=== PATIENT | female | born 1955 | race African-American/Black ===

== ENCOUNTER 2016-10-18 10:37 | Emergency (ER) | payer OTHER ==
[~2016-10-18] VITALS: Ht 157.5 cm; Wt 65.8 kg
[~2016-10-18 10:37] MED LIST: ALPR0.5T2 PO; GABA600T1 PO; HYDR-4452 PO; IBUP-974 PO; LORA-476 PO; VENL75TA17 PO
--- NOTE | 2016-10-18 10:37 | NUR ---
PATIENT BIB BLS TO ER BED 6.
--- NOTE | 2016-10-18 10:40 | NUR ---
60/F BIBA FROM HOME STATES FELL OFF BED ONTO TILE WITH PAIN TO R HIP RADIATING TO BACK. HX OSTEOPOROSIS AND SIATICA. PER EMS PT WAITING FOR THEM IN WHEELCHAIR. W/C BROUGHT WITH PT. DENIES LOC. PT AAOX4. PT SISTER ON THE WAY. DENIES N/V/D; SKIN IS PINK/WARM/DRY; AAOX4 WITH EVEN AND STEADY GAIT; LUNGS CLEAR BL; HR EVEN AND REGULAR; PT DENIES ANY FEVER, CP, SOB, OR COUGH AT THIS TIME; PATIENT STATES RT HIP PAIN OF 8/10 AT THIS TIME; VSS; PATIENT POSITIONED FOR COMFORT; HOB ELEVATED; BEDRAILS UP X2; BED DOWN. ER MD MADE AWARE OF PT STATUS.
[2016-10-18 10:41] VITALS: BP 133/67
[2016-10-18] MEDS ORDERED: fentaNYL 0.05 MG/ML VIAL IVP ONE ×2 (10:45→11:30)
[2016-10-18] MEDS ORDERED: NACL 0.9% 1,000 ML IV ONE (10:45)
--- NOTE | 2016-10-18 10:47 | NUR ---
PATIENT BEING EVALUATED BY DR. RUFF.
--- NOTE | 2016-10-18 11:06 | NUR ---
PT WENT TO CT SCAN ACCOMPANIED BY TECH.
[2016-10-18 11:13] LABS: BASOPHILS # (AUTO) 0.1 K/uL (0.00-0.22); BASOPHILS % (AUTO) 2.2 % (0.0-2.0); EOSINOPHILS # (AUTO) 0.2 K/uL (0-0.4); EOSINOPHILS % (AUTO) 4.3 % (0.0-4.0); HEMATOCRIT 38.2 % (36-48); HEMOGLOBIN 12.5 g/dL (12.0-16.0); LYMPHOCYTES # (AUTO) 1.6 K/uL (2.5-16.5); LYMPHOCYTES % (AUTO) 30.8 % (20.5-51.1); MEAN CORPUSCULAR HEMOGLOBIN 29 pg (27-31); MEAN CORPUSCULAR HGB CONC 33 g/dL (33-37); MEAN CORPUSCULAR VOLUME 90 fL (80-94); MONOCYTES # (AUTO) 0.2 K/uL (0.8-1.0); MONOCYTES % (AUTO) 4.6 % (1.7-9.3); NEUTROPHILS # (AUTO) 3.1 K/uL (1.8-7.7); NEUTROPHILS % (AUTO) 58.1 % (42.2-75.2); PLATELET COUNT (AUTO) 367 K/uL (140-450); RED BLOOD CELL COUNT(AUTO) 4.26 MIL/uL (4.20-5.40); RED CELL DISTRIBUTION WIDTH 14.7 % (11.6-13.7); WHITE BLOOD COUNT (AUTO) 5.2 K/uL (4.8-10.8)
[2016-10-18 11:30] LABS: ALBUMIN 3.1 g/dL (3.4-5.0); ANION GAP 14.1 (8-16); CALCIUM 8.9 mg/dL (8.5-10.1); CARBON DIOXIDE 22.9 mmol/L (21-32); CREATININE 1.4 mg/dL (0.6-1.3); TOTAL BILIRUBIN 0.2 mg/dL (0.0-1.0); TOTAL PROTEIN, SERUM 7.1 g/dL (6.4-8.2)
[2016-10-18 11:41] LABS: PARTIAL THROMBOPLASTIN TIME 26.2 secs (22-35.6); PROTHROMBIN TIME 10.2 secs (10.8-13.4)
[2016-10-18] MEDS ORDERED: POTASSIUM CHLORIDE 10 MEQ TABER PO ONE (11:50)
[2016-10-18 13:40] VITALS: BP 117/84
== END 2016-10-18 13:40 | disposition home or self-care (01) ==
LOC: MED 10:37
DX: S70.01XA Contusion of right hip, initial encounter (principal); M54.5 Low back pain; G89.29 Other chronic pain; N28.9 Disorder of kidney and ureter, unspecified; E87.6 Hypokalemia; R03.0 Elevated blood-pressure reading, without diagnosis of hypertension; Z79.899 Other long term (current) drug therapy; Z88.6 Allergy status to analgesic agent; Z88.3 Allergy status to other anti-infective agents
CPT/HCPCS: 36415; 72192; 80053; 85025; 85610; 85730; 93005; 96361; 96374; 96376; 99285; J3010; J7030; 96375

== ENCOUNTER 2017-05-01 11:51 | Emergency (ER) | payer OTHER ==
[~2017-05-01] VITALS: Ht 160 cm; Wt 63.5 kg
[~2017-05-01 11:51] MED LIST changes: +ACET-787 PO; -HYDR-4452 PO
[2017-05-01 12:07] VITALS: BP 144/67
--- NOTE | 2017-05-01 12:14 | NUR ---
PATIENT TO OF#1 AT THIS TIME.
--- NOTE | 2017-05-01 12:26 | NUR ---
PT CRYING AT THIS TIME, CLAIME I NEED ATIVAN
--- NOTE | 2017-05-01 12:30 | NUR ---
PATIENT MOVED TO BED 12.
--- NOTE | 2017-05-01 12:30 | NUR ---
PATIENT PRESENTS TO ED WITH P FALL YESTERDAY; C/O RIGHT LATERAL KNEE PAIN; PT ALSO C/O SEVERE ANXIETY AND STATES SHE RAN OUT OF ATIVAN YESTERDAY HX: ANXIETY, DEGENERATIVE BONE DISEASE . DENIES N/V/D; SKIN IS PINK/WARM/DRY; AAOX4 WITH EVEN AND STEADY GAIT; LUNGS CLEAR BL; HR EVEN AND REGULAR; PT DENIES ANY FEVER, CP, SOB, OR COUGH AT THIS TIME; PATIENT STATES PAIN OF 8/10 AT THIS TIME; PATIENT POSITIONED FOR COMFORT; HOB ELEVATED; BEDRAILS UP X2; BED DOWN. ER MD MADE AWARE OF PT STATUS. BLANKET TO THE PT AND ENCOURAGE TO CALM DOWN.
--- NOTE | 2017-05-01 12:35 | NUR ---
received report from christa fournier. pt moved to bed 12. pt with no complaints. pt is calm. rr are even and unlabored. vss. will continue to monitor.
--- NOTE | 2017-05-01 13:48 | NUR ---
DR. ALVAREZ AT BEDSIDE
[2017-05-01] MEDS ORDERED: LORazepam 2 MG/ML VIAL IM/IVP ONE (13:55)
[2017-05-01] MEDS ORDERED: ACETAMINOPHEN 325 MG TAB PO ONE (13:55)
[2017-05-01] MEDS ORDERED: ACETAMINOPHEN 325 MG TAB ONE (14:08)
[2017-05-01] MEDS ORDERED: LORazepam 2 MG/ML VIAL ONE ×2 (14:11→15:35)
--- NOTE | 2017-05-01 15:16 | NUR ---
informed er md tomlinson that patient is "anxious" and "wants more ativan.
[2017-05-01] MEDS ORDERED: LORazepam 2 MG/ML VIAL IM ONE (15:25)
[2017-05-01 15:48] VITALS: BP 121/80
--- NOTE | 2017-05-01 16:00 | NUR ---
patient stated "can you ask the doctor for more tramadol and muscle relaxers medication to go home"; er md tomlinson aware and notified.
--- NOTE | 2017-05-01 16:08 | NUR ---
pt left ed without discharge paperwork or obtaining vitals signs. pt stated "if I dont get what meds I want...why wait". Pt left ambulatory with steady gait with walked assistance. Pt sts she is calling a taxi for transportation home.
== END 2017-05-01 16:08 | disposition home or self-care (01) ==
LOC: MED 11:51
DX: S80.11XA Contusion of right lower leg, initial encounter (principal); F41.9 Anxiety disorder, unspecified; W18.39XA Other fall on same level, initial encounter; Y93.89 Activity, other specified; Y92.89 Other specified places as the place of occurrence of the external cause; Y99.8 Other external cause status
CPT/HCPCS: 73590; 96372; 99284; J2060; Q0092

== ENCOUNTER 2017-07-24 15:42 | Emergency (ER) | payer OTHER ==
[~2017-07-24] VITALS: Ht 157.5 cm; Wt 59.0 kg
[~2017-07-24 15:42] MED LIST changes: -ALPR0.5T2 PO
[2017-07-24 15:45] VITALS: BP 140/94
--- NOTE | 2017-07-24 15:46 | NUR ---
PT BIBA BLS FOR BACK PAIN TO BED 10
--- NOTE | 2017-07-24 15:50 | NUR ---
61Y/F BIB [facility] WITH LOW BACK PAIN THIS MORNING; S/P FALL ON A LADDER 2 DAYS AGO AND LANDED ON HER BACK; DENIES ALOC OR ANY OTHER INJURIES. ER MD MADE AWARE OF PT STATUS.
[2017-07-24] MEDS ORDERED: ONDANSETRON 4 MG ODT PO ONE (16:55)
[2017-07-24] MEDS ORDERED: DEXAMETHASONE 10 MG/ML VIAL IM ONE (16:55)
[2017-07-24] MEDS ORDERED: CYCLOBENZAPRINE 10 MG TAB PO ONE (16:55)
[2017-07-24] MEDS ORDERED: MORPHINE SULFATE 5 MG/ML VIAL IM ONE (16:55)
[2017-07-24] MEDS ORDERED: oxyCODONE/APAP 5/325 MG 1 TAB TAB PO ONE (18:10)
[2017-07-24 18:54] VITALS: BP 138/93
--- NOTE | 2017-07-24 18:54 | NUR ---
Patient discharged with v/s stable. Written and verbal after care instructions given and explained. Patient alert, oriented and verbalized understanding of instructions. Ambulatory with steady gait. All questions addressed prior to discharge. ID band removed. Patient advised to follow up with PMD. Rx of PERCOCET, FLEXIRIL given. Patient educated on indication of medication including possible reaction and side effects. Opportunity to ask questions provided and answered.
== END 2017-07-24 18:54 | disposition home or self-care (01) ==
LOC: MED 15:42
DX: S39.012A Strain of muscle, fascia and tendon of lower back, initial encounter (principal); Z88.6 Allergy status to analgesic agent; W11.XXXA Fall on and from ladder, initial encounter; Y93.89 Activity, other specified; Y92.89 Other specified places as the place of occurrence of the external cause; Y99.8 Other external cause status
CPT/HCPCS: 74018; 96372; 99284; J1100; J2270; Q0092; S0119

== ENCOUNTER 2017-08-04 10:38 | Emergency (ER) | payer OTHER ==
[~2017-08-04] VITALS: Ht 157.5 cm; Wt 63.5 kg
--- NOTE | 2017-08-04 10:39 | NUR ---
PT [place] BLS FOR ANXIETY TO BED 3
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
[2017-08-04 10:41] VITALS: BP 126/65
--- NOTE | 2017-08-04 10:48 | NUR ---
Patient being evaluated by DR Estevez bedside.
[2017-08-04] MEDS ORDERED: VENLAFAXINE 37.5 MG TAB PO ONE (10:50)
[2017-08-04] MEDS ORDERED: LORazepam 1 MG TAB PO ONE (10:50)
[2017-08-04] MEDS ORDERED: VENLAFAXINE 37.5 MG TAB PO SCH (10:55)
--- NOTE | 2017-08-04 10:56 | NUR ---
Jacque noel in ED - 08/04/17 at 1058 by [facility] PT 'S UNABLE TO PROVIDE URINE AT THIS TIME. PROVIDED WATER & JUICES.
[2017-08-04 11:26] VITALS: BP 131/75
--- NOTE | 2017-08-04 11:27 | NUR ---
Patient discharged with v/s stable. Written and verbal after care instructions given and explained. Patient alert, oriented and verbalized understanding of instructions. Ambulatory with WALKER. All questions addressed prior to discharge. ID band removed. Patient advised to follow up with PMD. Rx of ATIVAN & VENLAFAXINE given. Patient educated on indication of medication including possible reaction and side effects. Opportunity to ask questions provided and answered.
== END 2017-08-04 11:27 | disposition home or self-care (01) ==
LOC: MED 10:38
DX: F41.9 Anxiety disorder, unspecified (principal); F32.9 Major depressive disorder, single episode, unspecified; Z76.0 Encounter for issue of repeat prescription; Z88.6 Allergy status to analgesic agent; Z88.8 Allergy status to other drugs, medicaments and biological substances; Z59.0 Homelessness
CPT/HCPCS: 99284

== ENCOUNTER 2018-09-07 15:03 | Emergency (ER) | payer OTHER ==
[~2018-09-07] VITALS: Ht 167.6 cm; Wt 54.4 kg
[2018-09-07 15:11] VITALS: BP 106/69
--- NOTE | 2018-09-07 15:14 | NUR ---
PT TAKEN TO LOBBY, PT [id number]. PT CALLED FRIEND TO HAVE HIM COME PICK HER UP.
[2018-09-07 16:33] VITALS: BP 120/67
--- NOTE | 2018-09-07 16:34 | NUR ---
PT WAITING IN LOBY, REPORTS PAIN AT 8 IN RT HIP, VSS.
--- NOTE | 2018-09-07 17:26 | NUR ---
CALLED PT FROM LOBBY, NO RESPONSE
--- NOTE | 2018-09-07 17:26 | NUR ---
PATIENT LEFT WITHOUT BEING SEEN BY DR. HALE. NO FURTHER CARE PROVIDED FOR PATIENT.
== END 2018-09-07 17:26 | disposition left against medical advice (07) ==
LOC: MED 15:03
DX: M25.559 Pain in unspecified hip (principal); F32.9 Major depressive disorder, single episode, unspecified; F41.9 Anxiety disorder, unspecified; Z53.21 Procedure and treatment not carried out due to patient leaving prior to being seen by health care provider

== ENCOUNTER 2019-01-04 09:47 | Emergency (ER) | payer OTHER ==
[~2019-01-04] VITALS: Ht 157.5 cm; Wt 58.1 kg
[2019-01-04 09:51] VITALS: BP 118/95
[2019-01-04] MEDS ORDERED: HYDROcodone/APAP 5/325 MG 1 TAB TAB PO ONE (10:10)
[2019-01-04] MEDS ORDERED: MORPHINE SULFATE 2 MG/ML SYR IM ONE (11:55)
[2019-01-04] MEDS ORDERED: ONDANSETRON 4 MG ODT PO ONE (11:55)
[2019-01-04 12:59] VITALS: BP 105/55
== END 2019-01-04 13:00 | disposition home or self-care (01) ==
LOC: MED 09:47
DX: S70.01XA Contusion of right hip, initial encounter (principal); S60.222A Contusion of left hand, initial encounter; M16.0 Bilateral primary osteoarthritis of hip; F17.200 Nicotine dependence, unspecified, uncomplicated; Z79.899 Other long term (current) drug therapy; Z88.8 Allergy status to other drugs, medicaments and biological substances; Z71.6 Tobacco abuse counseling; W01.0XXA Fall on same level from slipping, tripping and stumbling without subsequent striking against object, initial encounter; Y93.89 Activity, other specified; Y92.89 Other specified places as the place of occurrence of the external cause; Y99.8 Other external cause status
CPT/HCPCS: 73130; 73502; 73700; 96372; 99284; J2270; Q0162

== ENCOUNTER 2019-02-02 14:12 | Emergency (ER) | payer OTHER ==
[~2019-02-02] VITALS: Ht 157.5 cm; Wt 54.4 kg
[2019-02-02 14:22] VITALS: BP 137/84
--- NOTE | 2019-02-02 14:25 | NUR ---
EMILE W C/O CHRONIC BACK/HIP PAIN S/P FALL. PT REPORTS SHE FELL "A FEW DAYS AGO" AND HAS BEEN HAVING EXACERBATED PAIN SINCE THEN. NO OBVIOUS DEFORMITY NOTED ON EXTREM. DENIES ANY HEAD INJURY. VSS. USES A WALKER FOR WALKING. NKA. HX: CHRONIC PAIN, DEPRESSION, ANXIETY, RX: TRAMADOL, EFFEXOR, ATIVAN, SEROQUEL
--- NOTE | 2019-02-02 14:35 | NUR ---
PA AT BEDSIDE.
[2019-02-02] MEDS ORDERED: HYDROcodone/APAP 5/325 MG 1 TAB TAB PO ONE (14:40)
[2019-02-02] MEDS ORDERED: KETOROLAC 30 MG/ML VIAL IM ONE (14:40)
[2019-02-02] MEDS ORDERED: MORPHINE SULFATE 4 MG/ML SYR IM ONE (15:45)
[2019-02-02] MEDS ORDERED: ONDANSETRON 4 MG ODT PO ONE (15:45)
[2019-02-02 16:17] VITALS: BP 137/84
--- NOTE | 2019-02-02 16:18 | NUR ---
Patient discharged with v/s stable. Written and verbal after care instructions given and explained. Patient alert, oriented and verbalized understanding of instructions. Ambulatory with steady gait. All questions addressed prior to discharge. ID band removed. Patient advised to follow up with PMD. Rx of NAPROXEN, AND NORCO given. Patient educated on indication of medication including possible reaction and side effects. Opportunity to ask questions provided and answered.
== END 2019-02-02 16:18 | disposition home or self-care (01) ==
LOC: MED 14:12
DX: S70.01XA Contusion of right hip, initial encounter (principal); S70.02XA Contusion of left hip, initial encounter; G89.29 Other chronic pain; M54.5 Low back pain; Z79.899 Other long term (current) drug therapy; W50.0XXA Accidental hit or strike by another person, initial encounter; Y93.89 Activity, other specified; Y92.89 Other specified places as the place of occurrence of the external cause; Y99.8 Other external cause status
CPT/HCPCS: 96372; 99283; J1885; J2270; Q0162